=== PATIENT | male | born 1985 | race Caucasian/White ===

== ENCOUNTER 2017-07-14 21:21 | Emergency (ER) | payer OTHER, SELFPAY ==
[~2017-07-14] VITALS: Ht 188 cm; Wt 109.1 kg
[2017-07-14 21:23] VITALS: BP 122/79
[2017-07-14] MEDS ORDERED: SYMB16INH INH (21:30)
[2017-07-14] MEDS ORDERED: VENTAER IN (21:31)
[2017-07-14] MEDS ORDERED: CLEO300C2 PO (22:14)
[2017-07-14] MEDS ORDERED: NORCOTAB PO (22:14)
[2017-07-14] MEDS ORDERED: NORCO 5/325MG TABLET (BULK FOR ED) PO ONE (22:15)
[2017-07-14] MEDS ORDERED: CLINDAMYCIN 150 MG CAP PO ONE (22:15)
== END 2017-07-14 22:23 | disposition home or self-care (01) ==
LOC: M ED 21:21
DX: L03.113 Cellulitis of right upper limb (principal); J45.909 Unspecified asthma, uncomplicated; F17.210 Nicotine dependence, cigarettes, uncomplicated; Z79.51 Long term (current) use of inhaled steroids

== ENCOUNTER → 2018-04-24 | Outpatient (REF) | payer OTHER, MEDICAID ==
[2018-04-24 10:17] LABS: HEMATOCRIT 48.6 % (42.0-52.0); MEAN CORPUSCULAR HEMOGLOBIN 29.2 pg (27.0-33.0); MEAN CORPUSCULAR HGB CONC 32.9 g/dl (32.0-36.5); MEAN CORPUSCULAR VOLUME 88.7 fl (80.0-96.0); PLATELET COUNT, AUTOMATED 303 10^3/uL (150-450); RED BLOOD COUNT 5.48 10^6/uL (4.30-6.10); RED CELL DISTRIBUTION WIDTH 13.4 % (11.5-14.5); WHITE BLOOD COUNT 7.7 10^3/uL (4.0-10.0)
[2018-04-24 10:18] LABS: AMORPHOUS SEDIMENT SMALL (NEGATIVE); APPEARANCE, URINE CLOUDY (CLEAR); BACTERIA, URINE AUTO 1+ (NEGATIVE); BILIRUBIN, URINE AUTO 2+ (NEGATIVE); BLOOD, URINE BLOOD NEGATIVE (NEGATIVE); COLOR, URINE AMBER (YELLOW); GLUCOSE, URINE (UA) AUTO 1+ mg/dL (NEGATIVE); KETONE, URINE AUTO NEGATIVE (NEGATIVE); LEUKOCYTE ESTERASE, URINE AUTO NEGATIVE (NEGATIVE); MUCUS, URINE MODERATE (NEGATIVE); NITRITE, URINE AUTO NEGATIVE (NEGATIVE); PROTEIN, URINE AUTO 1+ mg/dL (NEGATIVE); RBC, URINE AUTO 4 /HPF (0-3); SPECIFIC GRAVITY URINE AUTO 1.027 (1.002-1.035); SQUAMOUS EPITHELIAL CELL UR AU 0 /HPF (0-6); WBC, URINE AUTO 22 /HPF (0-3)
[2018-04-24 10:58] LABS: ALBUMIN/GLOBULIN RATIO 1.14 (1.00-1.93); ALKALINE PHOSPHATASE 232 U/L (45-117); ALT/SGPT 2446 U/L (12-78); ANION GAP 9 MEQ/L (8-16); AST/SGOT 1303 U/L (7-37); BLOOD UREA NITROGEN 5 MG/DL (7-18); CALCIUM LEVEL 9.2 MG/DL (8.5-10.1); CARBON DIOXIDE LEVEL 26 MEQ/L (21-32); CHLORIDE LEVEL 105 MEQ/L (98-107); CHOLESTEROL LEVEL 114 MG/DL (<200); CHOLESTEROL RISK RATIO 8.142 (<5); CREATININE FOR GFR 0.95 MG/DL (0.70-1.30); FREE T4 1.49 NG/DL (0.76-1.46); GLOMERULAR FILTRATION RATE > 60.0 (>60); GLUCOSE, FASTING 93 MG/DL (70-100); HDL CHOLESTEROL 14 MG/DL (>40); LDL CHOLESTEROL 54 MG/DL (<100); NON-HDL-C 100 MG/DL; POTASSIUM SERUM 4.6 MEQ/L (3.5-5.1); SODIUM LEVEL 140 MEQ/L (136-145); THYROID STIMULATING HORMONE 0.444 uIU/ML (0.358-3.740); TOTAL PROTEIN 7.5 GM/DL (6.4-8.2); TRIGLYCERIDES LEVEL 231 MG/DL (<150)
[2018-04-24 19:28] LABS: ACETAMINOPHEN LEVEL < 2.0 UG/ML (10.0-30.0); FERRITIN 1744 NG/ML (26-388)
[2018-04-25 10:09] LABS: HEPATITIS B SURFACE ANTIGEN NEGATIVE (NEGATIVE)
[2018-04-25 10:19] LABS: HEPATITIS B CORE ANTIBODY IGM NEGATIVE (NEGATIVE)
[2018-04-25 10:20] LABS: HEPATITIS A ANTIBODY IGM NEGATIVE (NEGATIVE)
[2018-04-25 10:22] LABS: HIV 1&2 SCREEN CENTAUR NEGATIVE (NEGATIVE)
[2018-04-25 10:42] LABS: HEPATITIS C VIRUS ABY INDEX > 11.0 INDEX (<0.8)
== END ==
LOC: M SFHCPLAZ 08:42
DX: R82.99 Other abnormal findings in urine (principal); R53.83 Other fatigue; Z13.220 Encounter for screening for lipoid disorders; Z11.59 Encounter for screening for other viral diseases; Z11.4 Encounter for screening for human immunodeficiency virus [HIV]

== ENCOUNTER → 2018-04-27 | Outpatient (CLI) | payer OTHER | LOC: M RAD 07:12 | DX: R74.8 Abnormal levels of other serum enzymes (principal); K76.0 Fatty (change of) liver, not elsewhere classified; N28.1 Cyst of kidney, acquired; K82.9 Disease of gallbladder, unspecified | CPT/HCPCS: 76705 ==

== ENCOUNTER → 2018-05-24 | Outpatient (CLI) | payer OTHER | LOC: M RAD 12:38 | DX: R10.13 Epigastric pain (principal); R10.33 Periumbilical pain | CPT/HCPCS: 74181 ==

== ENCOUNTER 2018-08-31 10:09 | Emergency (ER) | payer OTHER ==
[~2018-08-31] VITALS: Ht 190.5 cm; Wt 109.1 kg
[~2018-08-31 10:09] MED LIST: CLEO300C2 PO; NORCOTAB PO; SYMB16INH INH; VENTAER IN
[2018-08-31 10:10] VITALS: BP 134/77
[2018-08-31] MEDS ORDERED: IBUP-1022 PO (10:16)
[2018-08-31] MEDS ORDERED: NEOSPORIN OINT 0.9 GM PKT (FLOOR STOCK) TOP ONE (10:30)
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
== END 2018-08-31 11:00 | disposition home or self-care (01) ==
LOC: M ED 10:09
DX: S00.81XA Abrasion of other part of head, initial encounter (principal); Y04.8XXA Assault by other bodily force, initial encounter; Y92.410 Unspecified street and highway as the place of occurrence of the external cause; J45.909 Unspecified asthma, uncomplicated

== ENCOUNTER → 2019-08-14 | Outpatient (CLI) | payer OTHER ==
[~2019-08-14] MED LIST changes: +HYDR-3715 PO; +IBUP-1022 PO; -NORCOTAB PO
--- NOTE | 2019-08-14 19:56 | ECGEPIP ---
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
== END ==
LOC: M EKG 11:53
PROVIDERS: ATTEND Family Medicine
DX: F11.20 Opioid dependence, uncomplicated (principal)

== ENCOUNTER 2020-02-28 20:45 | Inpatient (IN) | payer OTHER ==
[2020-03-31 11:25] LABS: HEMATOCRIT 40.9 % (42.0-52.0); HEMOGLOBIN 13.3 g/dl (13.5-17.5); MEAN CORPUSCULAR HEMOGLOBIN 29.2 pg (27.0-33.0); MEAN CORPUSCULAR HGB CONC 32.5 g/dl (32.0-36.5); MEAN CORPUSCULAR VOLUME 89.9 fl (80.0-96.0); PLATELET COUNT, AUTOMATED 273 10^3/uL (150-450); RED BLOOD COUNT 4.55 10^6/uL (4.30-6.10); WHITE BLOOD COUNT 6.7 10^3/uL (4.0-10.0)
[2020-03-31 11:35] LABS: LYMPHOCYTES 6 % (16-44); MONOCYTES 6 % (0-5); NEUTROPHILS 83 % (28-66); PLATELET ESTIMATE NORMAL (NORMAL)
--- NOTE | 2020-03-31 14:51 | CR ---
DATE: 02/29/2020 REASON FOR CONSULTATION: Dorsal left hand swelling. HISTORY OF PRESENT ILLNESS: He is a 34-year-old right hand dominant male with about a 5 day history of some soreness and pain about the left hand. He had gradual onset. 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 He denies any IV drug use, however there has been a remote history of that in the past but nothing of late. I asked him if he had any fevers associated with it, he did not say he did. However, in the emergency room his temperature is 101.6. PAST MEDICAL HISTORY: Otherwise unremarkable. He does smoke cigarettes. He does not drink alcohol excessively. He says he last used heroin 2 weeks ago. PAST SURGICAL HISTORY: Right toe surgery. PHYSICAL EXAMINATION: On examination, he is a pleasant male, somewhat drowsy and sleeping in his stretcher. I was able to arouse him and examine him. His only complaint is soreness of his left hand. At the time I saw him, his temperature was 100.7 with a heart rate of 86, blood pressure 118/71, respirations 17, oxygen saturation 98%. His left upper extremity reveals some dorsal swelling, mild to moderate, associated with some mild erythema and warmth. He could flex and extend his fingers but it was sore when he did so. Sensation distally in all his fingertips was intact. Good capillary refill noted. His wrist was nontender with dorsiflexion and palmar flexion. LABORATORY STUDIES: Showed a white count of 6.7, hemoglobin 13.3, with platelets of 273. Sodium 142, potassium 4.1, chloride 107, bicarbonate 31, BUN 12, creatinine 0.95, glucose 103, lactic acid was 2.7. His sedimentation rate was 7. His CRP was 0.79. His drug screen was positive for urine opiates. An MR scan of his left hand was done at around 9 p.m. this evening. I was able to find the actual images over in the radiology department on a remote computer and it showed this diffuse soft tissue swelling and there is an area of diffuse consolidation and radiologist measured it 2 x 3.5 cm on the dorsal surface of the hand near the region of the base of the 4th metacarpal. On ultrasound, however, did not show any obvious cyst or abscess. X-rays just showed dorsal hand swelling, no acute findings of the bony structures. IMPRESSION: This is a dorsal cellulitis, possible small early abscess formation. He is being admitted and placed on vancomycin and ceftriaxone, which I agree with. I think elevating his hand with warm, moist soaks and observation is a reasonable plan for the time being. His sedimentation rate and C-reactive protein (CRP) are really very low, as is his white count, and hopefully this will consolidate and if it becomes more evident as there is a drainable abscess, we could potentially drain this if it becomes an obvious fluctuant mass. I talked to the patient about this. He is comfortable with that plan, so we are going to watch him over the next 24-48 hours on IV antibiotics with elevation and warm moist soaks and decide if drainage is necessary depending on how he responds to the antibiotics. SRIKANTH
== END 2020-02-29 18:25 | disposition left against medical advice (07) | DRG 720 ==
LOC: M ED 20:45 → M MSPAV 20:46
PROVIDERS: ADMIT Internal Medicine; ATTEND Internal Medicine
DX: A41.9 Sepsis, unspecified organism (principal); L03.113 Cellulitis of right upper limb; F11.90 Opioid use, unspecified, uncomplicated; F17.210 Nicotine dependence, cigarettes, uncomplicated

== ENCOUNTER 2021-12-27 15:20 | Emergency (ER) | payer OTHER ==
[~2021-12-27] VITALS: Ht 190.5 cm; Wt 137.8 kg
[2021-12-27 15:21] VITALS: BP 139/81
[2021-12-27] MEDS ORDERED: CEPH500C PO (15:28)
[2021-12-27 16:35] LABS: APPEARANCE, URINE CLEAR (CLEAR); BACTERIA, URINE AUTO NEGATIVE (NEGATIVE); BILIRUBIN, URINE AUTO NEGATIVE (NEGATIVE); BLOOD, URINE BLOOD NEGATIVE (NEGATIVE); COLOR, URINE YELLOW (YELLOW); GLUCOSE, URINE (UA) AUTO NEGATIVE (NEGATIVE); KETONE, URINE AUTO NEGATIVE (NEGATIVE); LEUKOCYTE ESTERASE, URINE AUTO NEGATIVE (NEGATIVE); MUCUS, URINE SMALL (NEGATIVE); NITRITE, URINE AUTO NEGATIVE (NEGATIVE); PROTEIN, URINE AUTO NEGATIVE (NEGATIVE); RBC, URINE AUTO 0 /HPF (0-3); SPECIFIC GRAVITY URINE AUTO 1.019 (1.002-1.035); SQUAMOUS EPITHELIAL CELL UR AU 0 /HPF (0-6); UROBILINOGEN, URINE AUTO 0.2 mg/dL (0.0-2.0); WBC, URINE AUTO 0 /HPF (0-3)
[2021-12-27 16:43] LABS: BASO % 0.4 % (0.0-1.0); EOS # 0.2 10^3/uL (0.0-0.5); HEMATOCRIT 38.6 % (42.0-52.0); HEMOGLOBIN 12.3 g/dl (13.5-17.5); LYMPH # 1.6 10^3/uL (1.5-5.0); LYMPH % 16.1 % (24.0-44.0); MEAN CORPUSCULAR HEMOGLOBIN 28.2 pg (27.0-33.0); MEAN CORPUSCULAR HGB CONC 31.9 g/dl (32.0-36.5); MEAN CORPUSCULAR VOLUME 88.5 fl (80.0-96.0); MONO # 0.1 10^3/uL (0.0-0.8); MONO % 0.7 % (2.0-8.0); NEUTROPHILS # 7.7 10^3/uL (1.5-8.5); NEUTROPHILS % 80.4 % (36.0-66.0); PLATELET COUNT, AUTOMATED 255 10^3/uL (150-450); RED BLOOD COUNT 4.36 10^6/uL (4.30-6.10); WHITE BLOOD COUNT 9.6 10^3/uL (4.0-10.0)
[2021-12-27 17:01] LABS: ERYTHROCYTE SEDIMENTATION RATE 20 mm/hr (0-15)
[2021-12-27 17:08] LABS: BLOOD UREA NITROGEN 14 MG/DL (7-18); C REACTIVE PROTEIN QUANTITATIV 1.52 MG/DL (0.00-0.30); CALCIUM LEVEL 8.5 MG/DL (8.5-10.1); CARBON DIOXIDE LEVEL 30 MEQ/L (21-32); CHLORIDE LEVEL 107 MEQ/L (98-107); CREATININE FOR GFR 0.87 MG/DL (0.70-1.30); GLOMERULAR FILTRATION RATE > 60.0 (>60); GLUCOSE, FASTING 90 MG/DL (70-100); NT-PRO BNP 77 PG/ML (<125); POTASSIUM SERUM 4.3 MEQ/L (3.5-5.1); SODIUM LEVEL 140 MEQ/L (136-145)
== END 2021-12-27 18:22 | disposition left against medical advice (07) ==
LOC: M ED 15:20
DX: R22.41 Localized swelling, mass and lump, right lower limb (principal); J45.909 Unspecified asthma, uncomplicated; F17.210 Nicotine dependence, cigarettes, uncomplicated

== ENCOUNTER → 2024-08-08 | Outpatient (REF) | payer OTHER ==
[~2024-08-08] MED LIST changes: +CEPH500C PO
== END ==
LOC: M LAB REF 16:02
PROVIDERS: ATTEND Physician Assistant
DX: B34.9 Viral infection, unspecified (principal)

== ENCOUNTER → 2025-04-15 | Outpatient (REF) | payer OTHER ==
[~2025-04-15] MED LIST changes: -IBUP-1022 PO; +IBUP600T42 PO
== END ==
LOC: M LAB REF 16:52
PROVIDERS: ATTEND Physician Assistant Medical
DX: B34.9 Viral infection, unspecified (principal)

== ENCOUNTER 2025-04-19 13:19 | Emergency (ER) | payer OTHER ==
[~2025-04-19] VITALS: Ht 188 cm; Wt 127.7 kg
[2025-04-19] MEDS ORDERED: SYMB16INH (13:28)
[2025-04-19] MEDS ORDERED: IMIT50TA (13:28)
[2025-04-19] MEDS ORDERED: BUPR8SUB PO (13:28)
[2025-04-19] MEDS: ACETAMINOPHEN 325 MG TAB PO ONE (13:57)
[2025-04-19] MEDS: KETOROLAC 60 MG/2 ML VIAL IM ONE (14:00)
[2025-04-19] MEDS ORDERED: NAPR-837 PO (14:18)
[2025-04-19] MEDS ORDERED: METH-1165 PO (14:18)
[2025-04-19 14:20] VITALS: BP 143/78; TEMP 98.9; O2SAT 97
== END 2025-04-19 14:22 | disposition home or self-care (01) ==
LOC: EDBD 13:19 → M ED 14:09
DX: S39.012A Strain of muscle, fascia and tendon of lower back, initial encounter (principal); Y92.9 Unspecified place or not applicable; Y93.9 Activity, unspecified; Y99.9 Unspecified external cause status; J45.909 Unspecified asthma, uncomplicated; F11.10 Opioid abuse, uncomplicated; Z79.899 Other long term (current) drug therapy
CPT/HCPCS: 96372; 99284; J1885

== ENCOUNTER → 2025-05-14 | Outpatient (REF) | payer OTHER ==
[~2025-05-14] MED LIST changes: +BUPR8SUB PO; +IMIT50TA; +METH-1165 PO; +NAPR-837 PO; +SYMB16INH
== END ==
LOC: M SFHCLERA 12:00
PROVIDERS: ATTEND Internal Medicine
DX: Z00.00 Encounter for general adult medical examination without abnormal findings (principal); R60.9 Edema, unspecified; Z86.19 Personal history of other infectious and parasitic diseases